=== PATIENT | male | born 1985 | race African-American/Black ===

== ENCOUNTER 2018-03-14 13:13 | Emergency (ER) | payer OTHER ==
--- OUTSIDE RECORDS SUMMARY | 2018-03-14 13:31 | XMS REPORT ---
:1985 External Reference #:[id number] Author Organization [facility] Address [address], [address] [place] [address] Phone [phone] Care Team Providers Name Role Phone Cedric Beaulieu MD Care Team Information [place] Unavailable Payers Type Date Identification Numbers Payment Provider Subscriber Health Maintenance Policy Number: [facility] [place] [id number] [place] PayID: [id number] [place] [address] Problems Date Description Provider Status Onset: 02/13/2018 Gastroesophageal reflux disease Sindy June MD Active Onset: 02/13/2018 Chronic nonalcoholic liver disease Sindy June MD Active Social History Type Date Description Comments ETOH Use Occasionally consumes alcohol Smoking Patient has never smoked Allergies, Adverse Reactions, Alerts Date Description Reaction Status Severity Comments 02/13/2018 NKDA active Medications Medication Date Status Form Strength Qnty SIG Indications Ordering Provider Vitamin B-12 Active Tablets 5000mcg 1 by Unknown 000 Sub mouth every day Calcium + D3 Active Tablets 600-200mg- 1 by Unknown 000 Unit mouth twice a day Tums Hx Chewtabs 500mg 2 tabs at Unknown 000 - at bedtime 018 as needed Omeprazole Hx Capsules 20mg 30caps 1 by Unknown 000 - DR mouth every day 018 as needed Phentermine Hx Capsules 37.5mg 1 by Unknown HCL 000 - mouth every 018 morning Cetirizine HCL Hx Chewtabs 10mg as needed Unknown 000 - 018 Topamax Hx Tablets 50mg 1 tablet Unknown 000 - in the morning, 018 2 tablet in the evening Vital Signs Date Vital Result Comment 02/13/2018 Height 66 inches 5'6" Weight 267.00 lb BMI (Body Mass Index) 43.1 kg/m2 Body Temperature 97.2 F Results Test Date Test Result H/L Range Note CBC With Diff And PLTS 02/13/2018 WBC 7.3 10*3/uL (4.1-11.0) RBC 5.51 10*6/uL (4.60-6.10) HGB 15.9 g/dL (13.5-18.0) HCT 46.4 % (41.0-53.0) MCV 84.2 fL (80.0-95.0) MCH 28.8 pg (27.0-32.0) MCHC 34.2 g/dL (32.0-36.0) RDW 14.9 % High (10.5-14.5) PLT 274 10*3/uL (150-450) MPV 8.9 fL (7.1-10.7) Neut % 53.7 % (35.0-75.0) Lymph % 34.7 % (16.0-52.0) Burke % 7.5 % (0.0-8.0) Eos % 3.9 % (0.0-5.0) Baso % 0.2 % (0.0-4.0) Neut # 3.9 10*3/uL (1.8-7.7) Lymph # 2.5 10*3/uL (1.2-4.8) Burke # 0.6 10*3/uL (0.0-0.8) Eos # 0.3 10*3/uL (0.0-0.5) Baso # 0.0 10*3/uL (0.0-0.2) Liver Hepatic Function Panel 02/13/2018 Total Protein 6.8 g/dL (6.4-8.2) Albumin 3.7 g/dL (3.5-4.6) Globulin 3.1 g/dL (2.7-4.3) Alb/Glob Ratio 1.2 RATIO Bilirubin,Total 0.4 mg/dL (0.0-1.0) Bilirubin,Conjugated 0.1 mg/dL (0.0-0.3) Bilirubin,Unconj. 0.3 mg/dL (0.0-0.7) Alkaline Phosphatase 86 U/L (45-117) Ast (Sgot) 25 U/L (11-39) Alt (SGPT) 26 U/L (12-78) Laboratory test finding 02/13/2018 Hepatitis B S Ag @ NEGATIVE (Neg) Iron Panel 02/13/2018 Iron,Total @ 42 g/dL (35-150) Uibc @ 224 g/dL (130-375) Tibc @ 266 g/dL (250-450) % Saturation 16 % (12-50) Lipid Panel 02/13/2018 Cholesterol @ 158 mg/dL (0-200) Triglyceride @ 160 mg/dL (30-200) HDL Cholesterol @ 41 mg/dL (>40) 1 Chol/HDL Ratio 3.9 RATIO 2 LDL Chol (Calc) 85 mg/dL (<130) 3 Laboratory test finding 02/13/2018 Thyroxine @ 9.6 g/dL (6.1-12.2) Basic Metabolic Panel 02/13/2018 Sodium 143 mmol/L (136-145) Potassium 4.0 mmol/L (3.6-5.2) Chloride 107 mmol/L (100-108) Co2 25 mmol/L (22-31) Anion Gap 11 mmol/L (7-16) Urea Nitrogen 9 mg/dL (7-24) Creatinine 0.88 mg/dL (0.80-1.30) BUN/Creat Ratio 10.2 RATIO (10.0-20.0) Glucose 80 mg/dL (70-99) Calcium 9.0 mg/dL (8.4-10.2) GFR >60 ml/min/1.73m2 (>59) GFR ( Amer) >60 ml/min/1.73m2 (>59) GFR Interpretation <SEE NOTE> 4 Laboratory test finding 02/13/2018 TSH,Ultrasensitive @ 1.060 mIU/L ( 0.360-4.170) Hepatitis A AB Igm @ NEGATIVE (Neg) Hep B S AB Quant @ >300.0 mIU/mL 5 Hepatitis C AB @ NEGATIVE (Neg) 6 Hemoglobin A1c 02/13/2018 Hemoglobin A1c @ 5.5 % (4.0-6.0) 7 Est Average Glucose 111 mg/dL 1 PER NCEP ATP III GUIDELINES: RESULTS LOWER THAN 40 MG/DL ARE SUGGESTIVE OF INCREASED RISK FOR CORONARY ARTERY DISEASE. RESULTS > OR=TO 60 MG/DL ARE CONSIDERED A NEGATIVE RISK FACTOR. 2 INTERPRETATION OF CHOL-HDL RATIO CHD RISK FEMALE MALE VERY HIGH >8.3 >14.3 HIGH 5.6- 8.3 6.7- 14.3 AVERAGE 3.7- 5.6 4.0- 6.7 BELOW AVERAGE 2.5- 3.7 2.7- 4.0 PROTECTED <2.5 <2.7 3 PER NCEP ATP III GUIDELINES: OPTIMAL < 100 NEAR OPTIMAL 100 - 129 BORDERLINE HIGH 130 - 159 HIGH 160 - 189 VERY HIGH > 189 4 NORMAL KIDNEY FUNCTION OR MILD DISEASE - GFR >OR=60 CHRONIC KIDNEY DISEASE - GFR 15 - 59 RENAL FAILURE - GFR <15 Est. GFR calculation based on the MDRD study equation, which assumes a steady state for creatinine. Est. GFR should not be used for medication dosing. 5 A MINIMUM LEVEL OF 10 mIU/mL IS SUGGESTED TO INSURE COMPLETE IMMUNITY. IF NEGATIVE OR LESS THAN 10 mIU/mL AT 1 TO 2 MONTHS FOLLOWING THE FINAL DOSE OF THE HEP B VACCINE SERIES, REVACCINATION IS RECOMMENDED FOR SELECT PATIENT POPULATIONS (SEE MMWR 2011:60(7)-JUN 15, 2011). 6 NOT INFECTED WITH HCV, UNLESS RECENT INFECTION IS SUSPECTED OR OTHER EVIDENCE EXISTS TO INDICATE HCV INFECTION. 7 Performed using Siemens [place] immunoassay. Care must be taken when interpreting HbA1c results in patients with a hemoglobin variant or decreased erythrocyte lifespan. Values 5.7 - 6.4% suggest prediabetes. Values >=6.5% are diagnostic for diabetes. REFERENCE: DIABETES CARE 2018: 41(S13-S27). Procedures Date CPT Code Description Status 11/07/2017 54955 Endoscopy W/BX Completed Plan of Care Future Appointment(s):04/17/2018 10:15 am - Sindy June MD at [address]
[2018-03-14 14:14] VITALS: BP 111/76
--- NOTE | 2018-03-14 14:35 | UC ---
Knee Pain HPI - HPI Summary HPI Summary: pt is c/o pain with swelling to his R knee for about 3 days. he "felt like something tore". he also feels like the knee cap popped out and back yesterday. no hx of acute injury. - History of Current Complaint Chief Complaint: UCLowerExtremity Stated Complaint: RIGHT KNEE INJURY Time Seen by Provider: 03/14/18 14:24 Hx Obtained From: Patient Pain Intensity: 9 Aggravating Factor(s): Weight Bearing Associated Signs And Symptoms: Positive: Swelling. Negative: Redness, Weakness , Numbness, Tingling Able to Bear Weight: Yes - Allergies/Home Medications Allergies/Adverse Reactions: Allergies Allergy/AdvReac Type Severity Reaction Status Date / Time NSAIDS (Non-Steroidal Allergy See Comment Verified 03/14/18 14:09 Anti-Inflamma Home Medications: Home Medications Calcium Carbonate [Calcium] 500 mg PO DAILY 03/14/18 [History Confirmed 03/14/18 ] Cholecalciferol TAB* [Vitamin D TAB*] 400 unit PO DAILY 03/14/18 [History Confirmed 03/14/18] Cyanocobalamin TAB* [Vitamin B12 TAB*] 5,000 mcg PO DAILY 03/14/18 [History Confirmed 03/14/18] Multivitamins/Minerals TAB* [Theragran/minerals TAB*] 1 tab PO DAILY 03/14/18 [ History Confirmed 03/14/18] PMH/Surg Hx/FS Hx/Imm Hx - Additional Past Medical History Additional PMH: obesity, L ACL tear - Surgical History Surgical History: Yes Surgery Procedure, Year, and Place: LEFT KNEE ACL. GASTRIC BYPASS - Family History Known Family History: Positive: Hypertension, Diabetes - Social History Lives: With Family Alcohol Use: Occasionally Substance Use Type: Marijuana Smoking Status (MU): Never Smoked Tobacco Have You Smoked in the Last Year: No - Immunization History Vaccination Up to Date: Yes Review of Systems Constitutional: Negative Skin: Negative Eyes: Negative ENT: Negative Respiratory: Negative Cardiovascular: Negative Gastrointestinal: Negative Genitourinary: Negative Motor: Negative Neurovascular: Negative Musculoskeletal: Other: - R knee pain/swelling Neurological: Negative Psychological: Negative Is Patient Immunocompromised?: No All Other Systems Reviewed And Are Negative: Yes Physical Exam Triage Information Reviewed: Yes Appearance: Well-Appearing Vital Signs: Initial Vital Signs Temp 97.5 F 03/14/18 14:04 Pulse 76 03/14/18 14:04 Resp 19 03/14/18 14:04 BP 111/76 03/14/18 14:04 Pulse Ox 96 03/14/18 14:04 Vital Signs Reviewed: Yes Eyes: Positive: Conjunctiva Clear ENT: Positive: Normal ENT inspection Neck: Positive: Supple, Nontender, No Lymphadenopathy Respiratory: Positive: Lungs clear, Normal breath sounds Cardiovascular: Positive: RRR, No Murmur Abdomen Description: Positive: Nontender, No Organomegaly, Soft Bowel Sounds: Positive: Present Musculoskeletal: Positive: Other: - RLE: Hip, calf, ankle and foot are without swelling or tenderness. R knee has mild swelling with generalized tenderness. No joint laxity on stressing. No laxity or pain with lateral stressing of the patella.No patellar grind. Gross s/v/m is intact. Psychological: Positive: Normal Response To Family, Age Appropriate Behavior Skin Exam: Normal Diagnostics - Radiology No standard instances Radiology Interpretation Completed By: Radiologist - IMPRESSION: NEGATIVE EXAMINATION. Knee Pain Course/Dx - Course Course Of Treatment: NO CONCERN FOR INFECTION, FX AND NO JOINT LAXITY NOTED. WILL HELEN, CRUTHCES AND ORTHO F/U. NO NSAID PT HAD GASTRIC BYPASS. - Differential Dx/Diagnosis Provider Diagnoses: Acute pain R knee. Mild swelling R knee Discharge - Sign-Out/Discharge Documenting (check all that apply): Patient Departure All imaging exams completed and their final reports reviewed: Yes - Discharge Plan Condition: Stable Disposition: HOME Patient Education Materials: Knee Pain (ED), Swollen Knee Joint (ED) Referrals: Jazmine Billy NP [Primary Care Provider] - If Needed David Tierney MD [Medical Doctor] - As Soon As Possible Additional Instructions: WEAR HELEN DURING DAY, REMOVE AT BEDTIME. USE CRUTCHES UNTIL CLEARED. - Billing Disposition and Condition Condition: STABLE Disposition: Home
--- NOTE | 2018-03-14 15:12 | RAD ---
INDICATION: Right knee pain COMPARISON: None TECHNIQUE: AP, lateral, tunnel, and sunrise views were obtained. FINDINGS: The bony structures, joint spaces, and soft tissues are normal for age. IMPRESSION: NEGATIVE EXAMINATION.
== END 2018-03-14 15:34 | disposition home or self-care (01) ==
LOC: UCCORT 13:13
DX: M25.561 Pain in right knee (principal); R22.41 Localized swelling, mass and lump, right lower limb; Z88.6 Allergy status to analgesic agent
CPT/HCPCS: 99213; G0463